=== PATIENT | male | born 1960 | race Caucasian/White ===

== ENCOUNTER 2017-05-13 09:40 | Day surgery (SDC) | payer BC ==
[~2017-05-13 09:40] MED LIST: Lactated Ringers 1,000 ML IV SCH; Lidocaine 1%/Sod Bicarbonate in NS 8.4% 1 ML Syringe IDERM PRN; Sodium Chloride 0.9% 10 ML Syringe FLUSH PRN
[2017-05-13] MEDS ORDERED: Albuterol 0.083% 2.5 MG/3 ML Neb Soln NEB ONE (10:25)
[2017-05-13] MEDS ORDERED: Propofol 200 MG/20 ML SDV ONE ×2 (10:43→13:04)
[2017-05-13] MEDS ORDERED: Lidocaine 1% 4 ML ONE (10:43)
[2017-05-13] MEDS ORDERED: Midazolam 1 MG/ML 2 ML SDV ONE (10:43)
[2017-05-13] MEDS ORDERED: fentaNYL 100 MCG/2 ML SDV ONE (10:43)
--- NOTE | 2017-05-13 11:00 | PCM.PREANE ---
Preanesthetic Assessment - Anesthesia/Transfusion/Family Hx Anesthesia History: Prior Anesthesia Without Reaction Family History of Anesthesia Reaction: No Transfusion History: No Prior Transfusion(s) - Review of Systems General: No Symptoms Pulmonary: No Symptoms Cardiovascular: No Symptoms, Chest Pain (acid reflux) Gastrointestinal: Abdominal Pain (reflux), Diarrhea (2 months- better now) Neurological: No Symptoms, Tingling (fingers) Other: Reports: Diabetes - Physical Assessment NPO Status Date: 05/13/17 NPO Status Time: 06:00 O2 Sat by Pulse Oximetry: 98 Respiratory Rate: 18 Vital Signs: Last Vital Signs Temp 98.1 F 05/13/17 09:53 Pulse 87 05/13/17 09:53 Resp 18 05/13/17 09:53 BP 133/70 05/13/17 09:53 Pulse Ox 99 05/13/17 10:40 Height: 5 ft 11 in Weight: 112.037 kg ASA Class: 2 Mental Status: Alert & Oriented x3 Airway Class: Mallampati = 2 Dentition: Reports: Missing Tooth/Teeth (about all teeth missing except a couple ) Thyro-Mental Finger Breadths: 3 Mouth Opening Finger Breadths: 3 ROM/Head Extension: Full Lungs: Clear to Auscultation, Normal Respiratory Effort Cardiovascular: Regular Rate, Regular Rhythm - Lab Values: Laboratory Last Values POC Glucose 99 mg/dL (70-105) 05/13/17 10:09 - Allergies Allergies/Adverse Reactions: Allergies Allergy/AdvReac Type Severity Reaction Status Date / Time No Known Allergies Allergy Verified 05/12/17 13:15 - Blood Blood Available: No - Acknowledgements Anesthesia Type Planned: MAC Pt an Appropriate Candidate for the Planned Anesthesia: Yes Alternatives and Risks of Anesthesia Discussed w Pt/Guardian: Yes Pt/Guardian Understands and Agrees with Anesthesia Plan: Yes PreAnesthesia Questionnaire HEENT History: Reports: None Cardiovascular History: Reports: Hypertension Respiratory History: Reports: Other (See Below) Other Respiratory History: lung nodule, emphysema Gastrointestinal History: Reports: Colon Polyp, GERD, Other (See Below) Other Gastrointestinal History: ventral hernia, esophageal thickening Genitourinary History: Reports: None INVESTMENT SPECIALIST History: Reports: None Musculoskeletal History: Reports: Other (See Below) Other Musculoskeletal History: foot surgery Neurological History: Reports: None Psychiatric History: Reports: None Endocrine/Metabolic History: Reports: Obesity/BMI 30+ Hematologic History: Reports: None Immunologic History: Reports: None Oncologic (Cancer) History: Reports: None Dermatologic History: Reports: Other (See Below) Other Dermatologic History: chest abcess - Past Surgical History Head Surgeries/Procedures: Reports: None HEENT Surgical History: Reports: None Cardiovascular Surgical History: Reports: None Respiratory Surgical History: Reports: None GI Surgical History: Reports: Colonoscopy Female Surgical History: Reports: None Male Surgical History: Reports: None Endocrine Surgical History: Reports: None, Other (See Below) (lump right breast) Neurological Surgical History: Reports: None Musculoskeletal Surgical History: Reports: None, Other (See Below) (foot surgery ) Oncologic Surgical History: Reports: None - SUBSTANCE USE Smoking Status *Q: Current Every Day Smoker Tobacco Use Within Last Twelve Months: Cigarettes Second Hand Smoke Exposure: Yes Days Per Week of Alcohol Use: 0 Recreational Drug Use History: No - HOME MEDS Home Medications: Home Meds Lisinopril/Hydrochlorothiazide [Lisinopril-Hctz 20-12.5 mg Tab] 1 tab PO DAILY 05/12/17 [History] Omeprazole [Omeprazole] 40 mg PO DAILY 05/12/17 [History] Saxagliptin [Onglyza] 2.5 mg PO DAILY 05/12/17 [History] atorvaSTATin Calcium [Atorvastatin Calcium] 40 mg PO DAILY 05/12/17 [History] metFORMIN HCl [Metformin HCl ER] 500 mg PO DAILY 05/12/17 [History] - CURRENT (IN HOUSE) MEDS Current Meds: Current Medications Lactated Ringer's (Ringers, Lactated) 1,000 mls @ 125 mls/hr IV ASDIRECTED JARAD Stop: 05/13/17 23:00 Last Admin: 05/13/17 10:15 Dose: 125 mls/hr Lidocaine/Sodium Bicarbonate (Buffered Lidocaine 1% In Ns 8.4%) 0.25 ml IDERM ONETIME PRN PRN Reason: Prior to IV Start Stop: 05/13/17 18:00 Last Admin: 05/13/17 10:14 Dose: 0.25 ml Sodium Chloride (Saline Flush) 10 ml FLUSH ASDIRECTED PRN PRN Reason: Keep Vein Open Stop: 05/13/17 18:00 Discontinued Medications Albuterol (Proventil Neb Soln) 2.5 mg NEB ONETIME ONE Stop: 05/13/17 10:26 Last Admin: 05/13/17 10:38 Dose: 2.5 mg Fentanyl (Sublimaze) Confirm Administered Dose 100 mcg .ROUTE .STK-MED ONE Stop: 05/13/17 10:44 Lidocaine HCl (Xylocaine-Mpf 1%) Confirm Administered Dose 4 mls @ as directed .ROUTE .STK-MED ONE Stop: 05/13/17 10:44 Midazolam HCl (Versed 1 Mg/Ml) Confirm Administered Dose 2 mg .ROUTE .STK-MED ONE Stop: 05/13/17 10:44 Propofol (Diprivan 20 Ml) Confirm Administered Dose 200 mg .ROUTE .STK-MED ONE Stop: 05/13/17 10:44
[2017-05-13] MEDS ORDERED: Lactated Ringers 1,000 ML ONE (13:16)
--- NOTE | 2017-05-13 13:39 | PCM48HPAN ---
Post Anesthesia Note - EVALUATION WITHIN 48HRS OF ANESTHETIC Vital Signs in Normal Range: Yes Patient Participated in Evaluation: Yes Respiratory Function Stable: Yes Airway Patent: Yes Cardiovascular Function Stable: Yes Hydration Status Stable: Yes Pain Control Satisfactory: Yes Nausea and Vomiting Control Satisfactory: Yes Mental Status Recovered: Yes Pulse Rate: 82 SaO2: 97 Resp Rate: 18 Temperature: 97.9 F Blood Pressure: 127/72
--- NOTE | 2017-05-13 13:41 | PCM.OPNOTE ---
- General Post-Op/Procedure Note Date of Surgery/Procedure: 05/13/17 Operative Procedure(s): egd with bx and colonosocopy with polyp[ectomy times 4 Pre Op Diagnosis: abnormal ct of esophagus and hx of colonic polyps Post-Op Diagnosis: Same Anesthesia Technique: MAC Primary Surgeon: Allen Saenz EBL in mLs: 0 Complications: None Condition: Good
--- NOTE | 2017-05-16 08:22 | OR ---
DATE OF OPERATION: 05/13/2017 SURGEON: Allen Saenz MD PREOPERATIVE DIAGNOSIS: Surveillance colonoscopy and personal history of polyps. POSTOPERATIVE DIAGNOSIS: Surveillance colonoscopy and personal history of polyps. OPERATION PERFORMED: Colonoscopy to cecum with polypectomy of a subcentimeter polyp in the proximal ascending colon was completely removed. A subcentimeter polyp in the distal ascending colon completely removed. A polyp at 30 cm which was completely removed and a diminutive rectal polyp just at the anal verge. FINDINGS: Other than diminutive polyps, there was some moderate diverticulosis of the descending sigmoid colon. There were no large tumor masses, ulcerations, or notable hemorrhoids. DESCRIPTION OF PROCEDURE: The patient was taken to the endoscopy room and connected to monitoring equipment and given IV sedation, underwent upper GI endoscopy and IV sedation continued for colonoscopy. He was placed in left lateral position. Perianal area was unremarkable. Rectal exam showed good sphincter tone. A video Olympus colonoscope was then introduced into the rectum and threaded up without problem to the cecum after external pressure and a loop was controlled and advanced just into the ileocecal valve. Photographed the cecum. The prep was good throughout the colon, [place] cleansing score grade B and the scope was slowly withdrawn showing the cecum, ascending colon, transverse colon, descending colon, sigmoid colon, and rectum. A polyp was noted in the ascending colon, proximal and distal areas and each was lassoed with cautery snare with short bursts of coagulation current. They were removed and the polyp was retrieved. This was done in the proximal ascending colon and the distal ascending colon. At 30 cm, another polyp was identified and this was removed by cautery snare and a rectal polyp was also removed by cautery snare. This patient tolerated the procedure, sent to recovery room in a stable condition. Specimen sent to pathology in a labeled container. The patient will be followed up in the clinic. ANESTHESIA: ESTIMATED BLOOD LOSS: MMODAL /[id number]
--- NOTE | 2017-05-16 08:22 | OR ---
DATE OF OPERATION: 05/13/2017 SURGEON: Allen Saenz MD PREOPERATIVE DIAGNOSIS: Abnormal CT scan of the esophagus. POSTOPERATIVE DIAGNOSIS: Abnormal CT scan of the esophagus. PROCEDURE: Esophagogastroduodenoscopy with biopsy done under IV sedation. FINDINGS: The 2nd portion of the duodenum duodenal bulb, and pyloric channel were unremarkable. Antrum showed some edema. Body, cardia, and stomach were negative. J-maneuver showed a small sliding hiatal hernia. The scope withdrawn from the GE junction. Z-line was unremarkable. Some chronic esophagitis, however, noted. Biopsies were taken of this area and it was located at 45 cm. Rest of the esophagus viewed as the scope withdrawn was normal. DESCRIPTION OF PROCEDURE: The patient taken to the endoscopy room, placed in a supine position, connected to monitoring equipment, given IV sedation, and placed in left lateral position. Bite-block was inserted and video Olympus gastroscope placed in a posterior oropharynx, under direct vision, threaded past the cricopharyngeus down the esophagus into the stomach. It was then threaded past the cricopharyngeus to the 2nd portion of the duodenum and slowly withdrawn from the 2nd portion of the duodenum through the duodenal bulb and pyloric channel, all of which were normal. The antrum showed some edema, which was biopsied. Body and cardia of the stomach were viewed. J-maneuver was performed. Biopsy of the antrum was performed. Scope was withdrawn from the GE junction, which was as described above and this was biopsied. The rest of the esophagus viewed as the scope withdrawn normal. The patient tolerated the procedure and IV sedation continued for colonoscopy. ESTIMATED BLOOD LOSS: MMODAL /[id number]
--- NOTE | 2017-06-02 12:16 | OR ---
DATE OF OPERATION: 05/13/2017 SURGEON: Allen Saenz MD ADDENDUM: An additional polyp was noted at 20 cm and was removed by cautery snare and retrieved for pathology. MMODAL /[id number]
== END 2017-05-13 14:20 | disposition home or self-care (01) ==
LOC: JD.SDS 09:40
PROVIDERS: ATTEND Surgery
DX: Z12.11 Encounter for screening for malignant neoplasm of colon (principal); D12.2 Benign neoplasm of ascending colon; D12.6 Benign neoplasm of colon, unspecified; K62.1 Rectal polyp; K57.30 Diverticulosis of large intestine without perforation or abscess without bleeding; K44.9 Diaphragmatic hernia without obstruction or gangrene; K31.9 Disease of stomach and duodenum, unspecified; I10 Essential (primary) hypertension; E11.9 Type 2 diabetes mellitus without complications; E66.9 Obesity, unspecified; Z79.84 Long term (current) use of oral hypoglycemic drugs; Z79.899 Other long term (current) drug therapy; Z88.8 Allergy status to other drugs, medicaments and biological substances; F17.210 Nicotine dependence, cigarettes, uncomplicated; Z86.010 Personal history of colon polyps; Z68.30 Body mass index [BMI] 30.0-30.9, adult
CPT/HCPCS: 43239; 45385; 82962; 94640; J2250; J3010; J7120; 00813; J2001; J2704

== ENCOUNTER 2022-10-25 10:16 | Day surgery (SDC) | payer BC ==
[~2022-10-25 10:16] MED LIST changes: -Lidocaine 1%/Sod Bicarbonate in NS 8.4% 1 ML Syringe IDERM PRN; +Sodium Chloride 0.9% 10 ML Syringe FLUSH SCH
[2022-10-25] MEDS ORDERED: Midazolam 1 MG/ML 2 ML SDV ONE (11:23)
[2022-10-25] MEDS ORDERED: Propofol 200 MG/20 ML SDV ONE ×3 (11:23→13:18)
[2022-10-25] MEDS ORDERED: Lidocaine 1% 4 ML ONE (11:25)
[2022-10-25] MEDS ORDERED: ePHEDrine 50 MG/ML SDV ONE (13:11)
== END 2022-10-25 14:45 | disposition home or self-care (01) ==
LOC: JD.SDS 10:16
PROVIDERS: ATTEND Surgery
DX: Z12.11 Encounter for screening for malignant neoplasm of colon (principal); K31.A11 Gastric intestinal metaplasia without dysplasia, involving the antrum; D12.3 Benign neoplasm of transverse colon; D12.4 Benign neoplasm of descending colon; K63.5 Polyp of colon; K31.89 Other diseases of stomach and duodenum; K21.00 Gastro-esophageal reflux disease with esophagitis, without bleeding; K44.9 Diaphragmatic hernia without obstruction or gangrene; K22.89 Other specified disease of esophagus; K57.30 Diverticulosis of large intestine without perforation or abscess without bleeding; K29.70 Gastritis, unspecified, without bleeding; K29.80 Duodenitis without bleeding; G47.33 Obstructive sleep apnea (adult) (pediatric); K64.9 Unspecified hemorrhoids; E05.90 Thyrotoxicosis, unspecified without thyrotoxic crisis or storm; Z53.09 Procedure and treatment not carried out because of other contraindication; E11.9 Type 2 diabetes mellitus without complications; E66.9 Obesity, unspecified; E78.5 Hyperlipidemia, unspecified; Z87.891 Personal history of nicotine dependence; Z79.84 Long term (current) use of oral hypoglycemic drugs; Z79.899 Other long term (current) drug therapy; Z88.8 Allergy status to other drugs, medicaments and biological substances; Z68.41 Body mass index [BMI] 40.0-44.9, adult
CPT/HCPCS: 43239; 45380; 82947; J2250; J2704; J7120; 00813; J3490

== ENCOUNTER 2023-01-26 10:43 | Day surgery (SDC) | payer BC ==
[2023-01-26] MEDS ORDERED: Ondansetron 4 MG/2 ML SDV IVPUSH PRN (13:41)
[2023-01-26] MEDS ORDERED: Midazolam 1 MG/ML 2 ML SDV ONE (14:00)
[2023-01-26] MEDS ORDERED: Lidocaine 1% 2 ML ONE (14:00)
[2023-01-26] MEDS ORDERED: Propofol 200 MG/20 ML SDV ONE ×3 (14:00→15:24)
== END 2023-01-26 16:10 | disposition home or self-care (01) ==
LOC: JD.SDS 10:43
PROVIDERS: ATTEND Surgery
DX: Z12.11 Encounter for screening for malignant neoplasm of colon (principal); D12.3 Benign neoplasm of transverse colon; D12.0 Benign neoplasm of cecum; K64.9 Unspecified hemorrhoids; E11.9 Type 2 diabetes mellitus without complications; E78.5 Hyperlipidemia, unspecified; K21.9 Gastro-esophageal reflux disease without esophagitis; I10 Essential (primary) hypertension; G47.33 Obstructive sleep apnea (adult) (pediatric); E66.9 Obesity, unspecified; Z87.891 Personal history of nicotine dependence; Z79.84 Long term (current) use of oral hypoglycemic drugs; Z79.899 Other long term (current) drug therapy; Z88.8 Allergy status to other drugs, medicaments and biological substances; Z68.41 Body mass index [BMI] 40.0-44.9, adult
CPT/HCPCS: 45380; 45385; 82947; J2250; J2704; J7120; 00811; J3490